=== PATIENT | male | born 1970 | race Caucasian/White ===

== ENCOUNTER 2018-02-14 16:10 | Emergency (ER) | payer SELFPAY | END 2018-02-14 16:31 | disposition home or self-care (01) | LOC: NAV ERS 16:10 | DX: S00.81XA Abrasion of other part of head, initial encounter (principal); F17.210 Nicotine dependence, cigarettes, uncomplicated; W22.8XXA Striking against or struck by other objects, initial encounter | CPT/HCPCS: 99283 ==